=== PATIENT | male | born 1970 | race Caucasian/White ===

== ENCOUNTER 2018-05-15 13:45 | Outpatient (CLI) | payer BC ==
[2018-05-15 14:46] LABS: eGFR (African) > 60; eGFR (Non-African) > 60
== END 2018-05-15 13:46 ==
LOC: LAB 13:45
PROVIDERS: ATTEND Family Medicine
DX: E11.9 Type 2 diabetes mellitus without complications (principal)
CPT/HCPCS: 36415; 80053; 80061; 83036